=== PATIENT | male | born 1955 | race Caucasian/White ===

== ENCOUNTER 2017-07-20 16:29 | Emergency (ER) | payer SELFPAY ==
[~2017-07-20] VITALS: Ht 177.8 cm; Wt 62.1 kg
[2017-07-20 19:57] VITALS: BP 161/98
== END 2017-07-20 19:57 | disposition home or self-care (01) ==
LOC: ED 16:29
DX: L03.114 Cellulitis of left upper limb (principal)
CPT/HCPCS: 90715; J0696; J2001